=== PATIENT | female | born 1985 | race Caucasian/White ===

== ENCOUNTER 2020-01-21 20:50 | Emergency (ER) | payer OTHER ==
[~2020-01-21] VITALS: Ht 165.1 cm; Wt 92.1 kg
[2020-01-21 22:11] VITALS: BP 174/97
[2020-01-21] MEDS ORDERED: diphenhydrAMINE HCL 50 MG/ML VIAL IV ONE (23:00)
[2020-01-21] MEDS ORDERED: IV NS 0.9% 1,000 ML BAG IV ONE (23:00)
[2020-01-21] MEDS ORDERED: METOCLOPRAMIDE HCL 10 MG/2 ML VIAL IV ONE (23:00)
[2020-01-21] MEDS ORDERED: KETOROLAC TROMETHAMINE INJ 30 MG/ML VIAL IV ONE (23:00)
[2020-01-21] MEDS ORDERED: METOCLOPRAMIDE HCL 10 MG/2 ML VIAL ONE (23:04)
[2020-01-21] MEDS ORDERED: KETOROLAC TROMETHAMINE INJ 30 MG/ML VIAL ONE (23:04)
[2020-01-21] MEDS ORDERED: diphenhydrAMINE HCL 50 MG/ML VIAL ONE (23:04)
--- NOTE | 2020-01-22 00:12 | NUR ---
Patient discharged to home in stable condition. Written and verbal after care instructions given. Patient verbalizes understanding of instruction.IV removed. Catheter intact and site benign. Pressure and 4x4 applied to site. No bleeding noted.
== END 2020-01-22 00:12 | disposition home or self-care (01) ==
LOC: ER 20:51
DX: G43.909 Migraine, unspecified, not intractable, without status migrainosus (principal); Z88.6 Allergy status to analgesic agent; Z88.5 Allergy status to narcotic agent; Z88.9 Allergy status to unspecified drugs, medicaments and biological substances
CPT/HCPCS: 96374; 96375; 99284; J1200; J1885; J2765; J7030